=== PATIENT | male | born 1985 | race Caucasian/White ===

== ENCOUNTER 2016-06-03 16:30 | Emergency (ER) ==
[2016-06-03 16:36] VITALS: BP 148/90; TEMP 97.4; BMI 38.7
--- NOTE | 2016-06-03 17:13 | ED.PDOC ---
General ED Provider: Dr. ELSA RICKETTS Chief Complaint: Medication Refill Stated Complaint: med refill Time Seen by Physician: 16:31 Mode of Arrival: Walk-In Information Source: Patient Exam Limitations: No limitations Primary Care Provider: TRAV MOLINA Nursing and Triage Documentation Reviewed and Agree: Yes Miscellaneous Complaint Exam - Complex/Multi-System Complaint/Exam Onset/Duration: med refill pain meds Review of Systems - Review Of Systems Constitutional: Reports: No symptoms Eyes: Reports: No symptoms Ears, Nose, Mouth, Throat: Reports: No symptoms Respiratory: Reports: No symptoms Cardiac: Reports: No symptoms GI: Reports: No symptoms : Reports: No symptoms Musculoskeletal: Reports: No symptoms Skin: Reports: No symptoms Neurological: Reports: No symptoms Endocrine: Reports: No symptoms Hematologic/Lymphatic: Reports: No symptoms All Other Systems: Reviewed and Negative Past Medical History - Past Medical History Endocrine: Reports: None Cardiovascular: Reports: None Respiratory: Reports: None Hematological: Reports: None Gastrointestinal: Reports: None Genitourinary: Reports: None Neuro/Psych: Reports: Anxiety, Depression, Other (neuralgia) Musculoskeletal: Reports: Other (Antonette bites ) Cancer: Reports: None Other Pertinent Past Medical History: frostbite - Surgical History General Surgical History: Reports: Adenoidectomy, Orthopedic (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) - Family History Family History: Reports: Unknown - Social History Smoking Status: Current every day smoker, Light tobacco smoker Hx Substance Use: No Alcohol Screening: None - Immunizations Tetanus Shot up to Date: No Physical Exam - Physical Exam Appearance: Well-appearing, No pain distress, Well-nourished Eyes: JAGUAR, EOMI, Conjunctiva clear ENT: Ears normal, Nose normal, Oropharynx normal Respiratory: Airway patent, Breath sounds clear, Breath sounds equal, Respirations nonlabored Cardiovascular: RRR, Pulses normal, No rub, No murmur GI/: Soft, Nontender, No masses, Bowel sounds normal, No Organomegaly Musculoskeletal: Normal strength, ROM intact, No edema, No calf tenderness Skin: Warm, Dry, Normal color Neurological: Sensation intact, Motor intact, Reflexes intact, Cranial nerves intact, Alert, Oriented Psychiatric: Affect appropriate, Mood appropriate Critical Care Note - Critical Care Note Total Time (mins): 0 Course - Course Vital Signs: Temp Pulse Resp BP Pulse Ox 06/03/16 16:31 97.4 F L 112 H 20 148/90 H 96 Departure - Departure Time of Disposition: 17:13 Disposition: HOME SELF-CARE Discharge Problem: Encounter for medication refill Instructions: Medicine Refill (ED) Condition: Good Pt referred to PMD for follow-up: No Additional Instructions: Please call your Family Physician as soon as possible to schedule a follow-up appointment. Allergies/Adverse Reactions: Allergies No Known Allergies Allergy (Verified 06/03/16 16:37) Home Medications: Ambulatory Orders Oxycodone-Acetaminophen 10-325 [Percocet 10-325] 1 tab PO Q8H 04/12/15 Pregabalin [Lyrica] 300 mg PO BID 10/27/15
== END 2016-06-03 17:18 | disposition home or self-care (01) ==
LOC: ED 16:30
DX: Z76.0 Encounter for issue of repeat prescription (principal); F17.210 Nicotine dependence, cigarettes, uncomplicated
CPT/HCPCS: 99282

== ENCOUNTER 2016-06-15 12:47 | Emergency (ER) | payer OTHER ==
[2016-06-15 12:56] VITALS: BP 157/75; TEMP 96.7; BMI 37.6
--- NOTE | 2016-06-15 13:13 | ED.PDOC ---
General ED Provider: Dr. ELSA RICKETTS Chief Complaint: Hand Pain/Injury Stated Complaint: hand pain chronic out of pain meds Time Seen by Physician: 13:00 Mode of Arrival: Walk-In Information Source: Patient Exam Limitations: No limitations Primary Care Provider: TRAV MOLINA Nursing and Triage Documentation Reviewed and Agree: Yes Musculoskeletal Complaint Exam - Hand/Wrist Complaint/Exam Location of Pain: Reports: Hand Onset/Duration: chronic Symptoms Are: Still present Current Severity: None Alleviating: Reports: None Aggravating: Reports: None Review of Systems - Review Of Systems Constitutional: Reports: No symptoms Eyes: Reports: No symptoms Ears, Nose, Mouth, Throat: Reports: No symptoms Respiratory: Reports: No symptoms Cardiac: Reports: No symptoms GI: Reports: No symptoms : Reports: No symptoms Musculoskeletal: Reports: Other (hand pain) Skin: Reports: No symptoms Neurological: Reports: No symptoms Endocrine: Reports: No symptoms Hematologic/Lymphatic: Reports: No symptoms All Other Systems: Reviewed and Negative Past Medical History - Past Medical History Endocrine: Reports: None Cardiovascular: Reports: None Respiratory: Reports: None Hematological: Reports: None Gastrointestinal: Reports: None Genitourinary: Reports: None Neuro/Psych: Reports: Anxiety, Depression, Other (neuralgia) Musculoskeletal: Reports: Other (Antonette bites ) Cancer: Reports: None Other Pertinent Past Medical History: frostbite - Surgical History General Surgical History: Reports: Adenoidectomy, Orthopedic (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) - Family History Family History: Reports: Unknown - Social History Smoking Status: Current every day smoker, Light tobacco smoker Hx Substance Use: No Alcohol Screening: None Physical Exam - Physical Exam Appearance: Well-appearing, No pain distress, Well-nourished Eyes: JAGUAR, EOMI, Conjunctiva clear ENT: Ears normal, Nose normal, Oropharynx normal Respiratory: Airway patent, Breath sounds clear, Breath sounds equal, Respirations nonlabored Cardiovascular: RRR, Pulses normal, No rub, No murmur GI/: Soft, Nontender, No masses, Bowel sounds normal, No Organomegaly Musculoskeletal: Normal strength, ROM intact, No edema, No calf tenderness Skin: Warm, Dry, Normal color Neurological: Sensation intact, Motor intact, Reflexes intact, Cranial nerves intact, Alert, Oriented Psychiatric: Affect appropriate, Mood appropriate Critical Care Note - Critical Care Note Total Time (mins): 0 Course - Course Vital Signs: Temp Pulse Resp BP Pulse Ox 06/15/16 12:48 96.7 F L 81 20 157/75 H 97 Departure - Departure Time of Disposition: 13:12 Disposition: HOME SELF-CARE Discharge Problem: Encounter for medication refill Instructions: Medicine Refill (ED) Condition: Good Pt referred to PMD for follow-up: No Allergies/Adverse Reactions: Allergies No Known Allergies Allergy (Verified 06/15/16 12:57) Home Medications: Ambulatory Orders Oxycodone-Acetaminophen 10-325 [Percocet 10-325] 1 tab PO Q8H 04/12/15 Pregabalin [Lyrica] 300 mg PO BID 10/27/15 Disposition Discussed With: Patient
== END 2016-06-15 13:19 | disposition home or self-care (01) ==
LOC: ED 12:47
DX: M79.643 Pain in unspecified hand (principal); G89.29 Other chronic pain; Z76.0 Encounter for issue of repeat prescription; F17.210 Nicotine dependence, cigarettes, uncomplicated; Z89.022 Acquired absence of left finger(s); Z89.021 Acquired absence of right finger(s); Z79.899 Other long term (current) drug therapy
CPT/HCPCS: 99282

== ENCOUNTER 2016-11-13 10:51 | Emergency (ER) | payer OTHER ==
[2016-11-13 10:54] VITALS: BP 144/87; TEMP 98; BMI 36.9
--- NOTE | 2016-11-13 11:08 | ED.PDOC ---
General ED Provider: Dr. ELSA RICKETTS Chief Complaint: Hand Pain/Injury Stated Complaint: hand pain chronic Time Seen by Physician: 11:05 Mode of Arrival: Walk-In Information Source: Patient Exam Limitations: No limitations Primary Care Provider: TRAV MOLINA Nursing and Triage Documentation Reviewed and Agree: Yes Musculoskeletal Complaint Exam - Hand/Wrist Complaint/Exam Location of Pain: Reports: Right, Left, Hand Symptoms Are: Still present Initial Severity: Moderate Current Severity: Moderate Character: Reports: Dull, Aching Aggravating: Reports: None Associated Signs and Symptoms: Reports: Swelling Dominant Hand: Right Related Surgical History: Reports: None Compartment Syndrome Risk Factors: Present: Pain Review of Systems - Review Of Systems Constitutional: Reports: No symptoms Eyes: Reports: No symptoms Ears, Nose, Mouth, Throat: Reports: No symptoms Respiratory: Reports: No symptoms Cardiac: Reports: No symptoms GI: Reports: No symptoms : Reports: No symptoms Musculoskeletal: Reports: No symptoms Skin: Reports: No symptoms Neurological: Reports: No symptoms Endocrine: Reports: No symptoms Hematologic/Lymphatic: Reports: No symptoms All Other Systems: Reviewed and Negative Past Medical History - Past Medical History Endocrine: Reports: None Cardiovascular: Reports: None Respiratory: Reports: None Hematological: Reports: None Gastrointestinal: Reports: None Genitourinary: Reports: None Neuro/Psych: Reports: Anxiety, Depression, Other (neuralgia) Musculoskeletal: Reports: Other (Antonette bites ) Cancer: Reports: None Other Pertinent Past Medical History: frostbite - Surgical History General Surgical History: Reports: Adenoidectomy, Orthopedic (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) - Family History Family History: Reports: Unknown - Social History Smoking Status: Current every day smoker, Light tobacco smoker Hx Substance Use: No Alcohol Screening: None Physical Exam - Physical Exam Appearance: Well-appearing, No pain distress, Well-nourished Eyes: JAGUAR, EOMI, Conjunctiva clear ENT: Ears normal, Nose normal, Oropharynx normal Respiratory: Airway patent, Breath sounds clear, Breath sounds equal, Respirations nonlabored Cardiovascular: RRR, Pulses normal, No rub, No murmur GI/: Soft, Nontender, No masses, Bowel sounds normal, No Organomegaly Musculoskeletal: Normal strength, ROM intact, No edema, No calf tenderness Skin: Warm, Dry, Normal color Neurological: Sensation intact, Motor intact, Reflexes intact, Cranial nerves intact, Alert, Oriented Psychiatric: Affect appropriate, Mood appropriate Critical Care Note - Critical Care Note Total Time (mins): 0 Course - Course Vital Signs: Temp Pulse Resp BP Pulse Ox 11/13/16 10:52 98.0 F 85 16 144/87 H 98 Departure - Departure Time of Disposition: 11:10 Disposition: HOME SELF-CARE Discharge Problem: Hand pain Instructions: Arthralgia (ED) Condition: Good Pt referred to PMD for follow-up: No Additional Instructions: Please call your Family Physician as soon as possible to schedule a follow-up appointment. Allergies/Adverse Reactions: Allergies No Known Allergies Allergy (Verified 11/13/16 10:56) Home Medications: Ambulatory Orders Oxycodone-Acetaminophen 10-325 [Percocet 10-325] 1 tab PO Q8H 04/12/15 Pregabalin [Lyrica] 300 mg PO BID 10/27/15
== END 2016-11-13 11:16 | disposition home or self-care (01) ==
LOC: ED 10:51
DX: M79.642 Pain in left hand (principal); M79.641 Pain in right hand; G89.29 Other chronic pain; F17.210 Nicotine dependence, cigarettes, uncomplicated
CPT/HCPCS: 99282

== ENCOUNTER 2017-02-10 23:06 | Emergency (ER) ==
[2017-02-10 23:19] VITALS: BP 126/80; TEMP 97.4; BMI 33.5
[2017-02-10] MEDS ORDERED: MOTRIN PO STA (23:33)
[2017-02-10] MEDS ORDERED: AMOXIL PO STA (23:33)
--- NOTE | 2017-02-10 23:34 | ED.PDOC ---
General ED Provider: Dr. PETE STRE[address] Chief Complaint: Tooth Problem Stated Complaint: Pateint is a 31 year old male who comes to the Er with Left upper molar dental pain and crack for two days. Time Seen by Physician: 23:33 Mode of Arrival: Walk-In Information Source: Patient Exam Limitations: No limitations Primary Care Provider: TRAV MOLINA Nursing and Triage Documentation Reviewed and Agree: Yes EENT Complaint Exam - Dental/Oral Complaint/Exam Mechanism of Injury: No known trauma Onset/Duration: 3 days Symptoms Are: Still present Timing: Constant Initial Severity: Moderate Current Severity: Severe Location: Left upper molar Character: Reports: Aching, Throbbing Aggravating: Reports: Heat, Cold, Chewing Alleviating: Reports: None Associated Signs and Symptoms: Reports: Swelling, Foul odor, Foul taste in mouth Related History: Denies: Similar episode Cardiac Risk Factors: Reports: None Dental/Oral Surgical History: Reports: None Tooth Findings: Present: Gross decay, Gross caries, Abcess Cervical Lymphadenopathy Present: No Facial Swelling Present: Yes (left upper jaw area ) Bleeding Present: No Oropharynx Findings: Absent: Clots, Active bleeding Septal Hematoma: No Foreign Body Present: No Dysphagia Present: No Drooling Present: No Asymmetrical Tonsillar Swelling Present: No Uvula Midline: No Teresa-tonsillar Fluctuence: No Trismus Present: No Palatal Petechiae Present: No Scarlatinaform Rash Present: No Lesions: Absent: Lip Exanthem: Absent: Lip Vesicles: Absent: Lip Teeth Picture: 1 - decay and fracture Differential Diagnoses: Dental Abcess, Dental Caries, Fractured Tooth Review of Systems - Review Of Systems Constitutional: Reports: No symptoms Eyes: Reports: No symptoms Ears, Nose, Mouth, Throat: Reports: Mouth pain Respiratory: Reports: No symptoms Cardiac: Reports: No symptoms GI: Reports: No symptoms : Reports: No symptoms Musculoskeletal: Reports: No symptoms Skin: Reports: No symptoms Neurological: Reports: Anxiety Endocrine: Reports: No symptoms Hematologic/Lymphatic: Reports: No symptoms All Other Systems: Reviewed and Negative Past Medical History - Past Medical History Endocrine: Reports: None Cardiovascular: Reports: None Respiratory: Reports: None Hematological: Reports: None Gastrointestinal: Reports: None Genitourinary: Reports: None Neuro/Psych: Reports: Anxiety, Depression, Other (neuralgia) Musculoskeletal: Reports: Other (Antonette bites ) Cancer: Reports: None Other Pertinent Past Medical History: frostbite - Surgical History General Surgical History: Reports: Adenoidectomy, Orthopedic (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) - Family History Family History: Reports: Unknown - Social History Smoking Status: Current every day smoker, Light tobacco smoker Hx Substance Use: No Alcohol Screening: None - Immunizations Tetanus Shot up to Date: Yes Physical Exam - Physical Exam Appearance: Ill-appearing Ill-appearing: Mild Pain Distress: Severe Eyes: JAGUAR, EOMI, Conjunctiva clear Neck: Supple Respiratory: Airway patent, Breath sounds clear, Breath sounds equal, Respirations nonlabored Cardiovascular: RRR, Pulses normal, No rub, No murmur Skin: Warm, Dry, Normal color Neurological: Sensation intact, Motor intact, Alert, Oriented Psychiatric: Anxious Critical Care Note - Critical Care Note Total Time (mins): 0 Course - Course Vital Signs: Temp Pulse Resp BP Pulse Ox 02/10/17 23:07 97.4 F L 95 H 20 126/80 97 Departure - Departure Time of Disposition: 23:55 Disposition: HOME SELF-CARE Discharge Problem: Toothache, Dental abscess Instructions: Dental Abscess (ED), Toothache (ED) Condition: Fair Pt referred to PMD for follow-up: Yes Additional Instructions: Follow up with your PCP in 3 days for anxiety medications and your dentist in 7- 10 days Take medications as prescribed for abscess. Prescriptions: Amoxicillin [Amoxil] 500 mg PO TID #30 capsule Ibuprofen [Motrin] 600 mg PO Q6H PRN #30 tablet PRN Reason: Analgesia Allergies/Adverse Reactions: Allergies No Known Allergies Allergy (Verified 02/10/17 23:13) Home Medications: Ambulatory Orders Oxycodone-Acetaminophen 10-325 [Percocet 10-325] 10 - 325 mg PO Q8H PRN Pregabalin [Lyrica] 300 mg PO BID 10/27/15 Amoxicillin [Amoxil] 500 mg PO TID #30 capsule 02/10/17 Ibuprofen [Motrin] 600 mg PO Q6H PRN #30 tablet 02/10/17 Disposition Discussed With: Patient
== END 2017-02-10 23:43 | disposition home or self-care (01) ==
LOC: ED 23:06
DX: K04.7 Periapical abscess without sinus (principal); K02.7 Dental root caries; F17.210 Nicotine dependence, cigarettes, uncomplicated
CPT/HCPCS: 99282

== ENCOUNTER 2017-02-21 13:18 | Emergency (ER) ==
[2017-02-21 13:21] VITALS: BP 125/87; TEMP 99; BMI 33.5
--- NOTE | 2017-02-21 13:37 | ED.PDOC ---
General ED Provider: Dr. KIERRA PLASENCIA Chief Complaint: Tooth Problem Stated Complaint: came for the broken molar teeth, left upper, was given antibiotics and pain meds, says he some better, wants some more. Time Seen by Physician: 13:34 Mode of Arrival: Walk-In Information Source: Patient Nursing and Triage Documentation Reviewed and Agree: Yes EENT Complaint Exam - Dental/Oral Complaint/Exam Mechanism of Injury: Unknown Symptoms Are: Still present Timing: Constant Initial Severity: Mild Current Severity: Mild Character: Reports: Dull, Aching Aggravating: Reports: Chewing Alleviating: Reports: None Associated Signs and Symptoms: Reports: Foul odor, Foul taste in mouth. Denies : Swelling, Discharge, Fever Related History: Reports: Similar episode Cardiac Risk Factors: Reports: None Dental/Oral Surgical History: Reports: None Tooth Findings: Present: Percussion tenderness, Dental fracture Facial Swelling Present: No Bleeding Present: No Septal Hematoma: No Foreign Body Present: No Dysphagia Present: No Drooling Present: No Asymmetrical Tonsillar Swelling Present: No Uvula Midline: No Teresa-tonsillar Fluctuence: No Trismus Present: No Palatal Petechiae Present: No Scarlatinaform Rash Present: No Differential Diagnoses: Dental Caries, Fractured Tooth Review of Systems - Review Of Systems Constitutional: Reports: No symptoms Eyes: Reports: No symptoms Ears, Nose, Mouth, Throat: Reports: Mouth pain Respiratory: Reports: No symptoms Cardiac: Reports: No symptoms GI: Reports: No symptoms : Reports: No symptoms Musculoskeletal: Reports: No symptoms Skin: Reports: No symptoms Neurological: Reports: No symptoms Endocrine: Reports: No symptoms Hematologic/Lymphatic: Reports: No symptoms All Other Systems: Reviewed and Negative Past Medical History - Past Medical History Previously Healthy: Yes Endocrine: Reports: None Cardiovascular: Reports: None Respiratory: Reports: None Hematological: Reports: None Gastrointestinal: Reports: None Genitourinary: Reports: None Neuro/Psych: Reports: Anxiety, Depression, Other (neuralgia) Musculoskeletal: Reports: Other (Antonette bites ) Cancer: Reports: None Other Pertinent Past Medical History: frostbite - Surgical History General Surgical History: Reports: Adenoidectomy, Orthopedic (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) - Family History Family History: Reports: Unknown - Social History Smoking Status: Current every day smoker, Light tobacco smoker Smoking Cessation Counseling Time: > 3 min - 10 min Hx Substance Use: No Alcohol Screening: None Physical Exam - Physical Exam Appearance: Well-appearing, No pain distress, Well-nourished Eyes: JAGUAR, EOMI, Conjunctiva clear ENT: Ears normal, Nose normal, Oropharynx normal Respiratory: Airway patent, Breath sounds clear, Breath sounds equal, Respirations nonlabored Cardiovascular: RRR, Pulses normal, No rub, No murmur GI/: Soft, Nontender, No masses, Bowel sounds normal, No Organomegaly Musculoskeletal: Normal strength, ROM intact, No edema, No calf tenderness Skin: Warm, Dry, Normal color Neurological: Sensation intact, Motor intact, Reflexes intact, Cranial nerves intact, Alert, Oriented Psychiatric: Affect appropriate, Mood appropriate Critical Care Note - Critical Care Note Total Time (mins): 0 Course - Course Vital Signs: Temp Pulse Resp BP Pulse Ox 02/21/17 13:19 99.0 F 76 20 125/87 97 Departure - Departure Time of Disposition: 13:39 Disposition: HOME SELF-CARE Discharge Problem: Toothache Instructions: Toothache (ED) Condition: Good Pt referred to PMD for follow-up: Yes Additional Instructions: patient left ER says there is an emergency and justice needs to be served. Allergies/Adverse Reactions: Allergies No Known Allergies Allergy (Verified 02/21/17 13:21) Home Medications: Ambulatory Orders Oxycodone-Acetaminophen 10-325 [Percocet 10-325] 10 - 325 mg PO Q8H PRN Pregabalin [Lyrica] 300 mg PO BID 10/27/15 Ibuprofen [Motrin] 600 mg PO Q6H PRN #30 tablet 02/10/17 Disposition Discussed With: Patient
[2017-02-21] MEDS ORDERED: TORADOL IM STA (13:40)
== END 2017-02-21 13:52 | disposition home or self-care (01) ==
LOC: ED 13:18
DX: K08.89 Other specified disorders of teeth and supporting structures (principal); S02.5XXA Fracture of tooth (traumatic), initial encounter for closed fracture; F17.210 Nicotine dependence, cigarettes, uncomplicated
CPT/HCPCS: 99282

== ENCOUNTER 2017-05-24 11:45 | Emergency (ER) ==
[2017-05-24 11:49] VITALS: BP 153/100; TEMP 97.6; BMI 36.2
--- NOTE | 2017-05-24 12:07 | ED.PDOC ---
General ED Provider: Dr. ELSA RICKETTS Chief Complaint: Hand Pain/Injury Stated Complaint: chronic hand pain Time Seen by Physician: 12:00 Mode of Arrival: Walk-In Information Source: Patient Exam Limitations: No limitations Nursing and Triage Documentation Reviewed and Agree: Yes Reviewed sepsis parameters & appropriate labs ordered?: Yes System Inflammatory Response Syndrome: Not Applicable Sepsis Protocol: For patient's 13 years and over: Temp is 96.8 and below OR 101 and greater Pulse >90 BPM Resp >20/minute Acutely Altered Mental Status Are patient's symptoms suggestive of a new infection, such as: -Pneumonia -Skin, Soft Tissue -Endocarditis -UTI -Bone, Joint Infection -Implantable Device -Acute Abdominal Infection -Wound Infection -Meningitis -Blood Stream Catheter Infection -Unknown Musculoskeletal Complaint Exam - Hand/Wrist Complaint/Exam Location of Pain: Reports: Right, Left, Hand Mechanism of Injury: Reports: No known trauma Onset/Duration: chronic pain issue worse in [place] Symptoms Are: Still present Onset of Pain: Reports: Hours Initial Severity: Mild Current Severity: Mild Location: Reports: Discrete Character: Reports: Aching Alleviating: Reports: Rest Aggravating: Reports: Movement Associated Signs and Symptoms: Denies: Swelling, Redness, Bruising, Fever, Weakness, Numbness, Tingling Related History: Reports: Similar episode Dominant Hand: Right Related Surgical History: Reports: None Differential Diagnoses: Sprain, Strain Review of Systems - Review Of Systems Constitutional: Reports: No symptoms Eyes: Reports: No symptoms Ears, Nose, Mouth, Throat: Reports: No symptoms Respiratory: Reports: No symptoms Cardiac: Reports: No symptoms GI: Reports: No symptoms : Reports: No symptoms Musculoskeletal: Reports: Other (hand pain) Skin: Reports: No symptoms Neurological: Reports: No symptoms Endocrine: Reports: No symptoms Hematologic/Lymphatic: Reports: No symptoms All Other Systems: Reviewed and Negative Past Medical History - Past Medical History Previously Healthy: Yes Endocrine: Reports: None Cardiovascular: Reports: None Respiratory: Reports: None Hematological: Reports: None Gastrointestinal: Reports: None Genitourinary: Reports: None Neuro/Psych: Reports: Anxiety, Depression, Other (neuralgia) Musculoskeletal: Reports: Other (Antonette bites ) Cancer: Reports: None Other Pertinent Past Medical History: frostbite - Surgical History General Surgical History: Reports: Adenoidectomy, Orthopedic (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) - Family History Family History: Reports: Unknown - Social History Smoking Status: Current every day smoker, Light tobacco smoker Hx Substance Use: No Alcohol Screening: None Physical Exam - Physical Exam Appearance: Well-appearing, No pain distress, Well-nourished Eyes: JAGUAR, EOMI, Conjunctiva clear ENT: Ears normal, Nose normal, Oropharynx normal Respiratory: Airway patent, Breath sounds clear, Breath sounds equal, Respirations nonlabored Cardiovascular: RRR, Pulses normal, No rub, No murmur GI/: Soft, Nontender, No masses, Bowel sounds normal, No Organomegaly Musculoskeletal: Normal strength, ROM intact, No edema, No calf tenderness Skin: Warm, Dry, Normal color Neurological: Sensation intact, Motor intact, Reflexes intact, Cranial nerves intact, Alert, Oriented Psychiatric: Affect appropriate, Mood appropriate Critical Care Note - Critical Care Note Total Time (mins): 0 Course - Course Vital Signs: Temp Pulse Resp BP Pulse Ox 05/24/17 11:45 97.6 F 108 H 16 153/100 H 98 Departure - Departure Time of Disposition: 12:06 Disposition: HOME SELF-CARE Discharge Problem: Hand pain, Injury of hand Instructions: Arthralgia (ED) Condition: Good Pt referred to PMD for follow-up: Yes Additional Instructions: Please call your Family Physician as soon as possible to schedule a follow-up appointment. Prescriptions: Hydrocodone/Acetaminophen [[place] 10-325 Tablet] 1 each PO Q8HR #20 tablet Allergies/Adverse Reactions: Allergies No Known Allergies Allergy (Verified 05/24/17 11:51) Home Medications: Ambulatory Orders Ibuprofen [Motrin] 600 mg PO Q6H PRN #30 tablet 02/10/17 Hydrocodone/Acetaminophen [Aurora 10-325 Tablet] 1 each PO Q8HR #20 tablet
== END 2017-05-24 12:08 | disposition home or self-care (01) ==
LOC: ED 11:45
DX: M79.642 Pain in left hand (principal); M79.641 Pain in right hand; G89.29 Other chronic pain; Z89.022 Acquired absence of left finger(s); Z89.021 Acquired absence of right finger(s); X31.XXXS Exposure to excessive natural cold, sequela
CPT/HCPCS: 99283

== ENCOUNTER 2017-06-08 11:50 | Emergency (ER) ==
[2017-06-08 11:51] VITALS: BMI 36.2
[2017-06-08 11:57] VITALS: BP 135/90; TEMP 97.3
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
== END 2017-06-08 12:51 | disposition home or self-care (01) ==
LOC: ED 11:50
DX: M79.642 Pain in left hand (principal); M79.641 Pain in right hand; G89.29 Other chronic pain; T33.5 Superficial frostbite of wrist, hand, and fingers; T33.531S Superficial frostbite of right finger(s), sequela; Z89.022 Acquired absence of left finger(s); Z89.021 Acquired absence of right finger(s)
CPT/HCPCS: 99282

== ENCOUNTER 2017-06-16 14:06 | Emergency (ER) | payer OTHER ==
[2017-06-16 14:07] VITALS: BMI 36.2
[2017-06-16 14:11] VITALS: BP 141/91; TEMP 98.3
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
== END 2017-06-16 14:34 | disposition home or self-care (01) ==
LOC: ED 14:06
DX: M79.642 Pain in left hand (principal); M79.641 Pain in right hand; G89.29 Other chronic pain; Z89.022 Acquired absence of left finger(s); Z89.021 Acquired absence of right finger(s)
CPT/HCPCS: 99282

== ENCOUNTER 2018-09-09 15:29 | Emergency (ER) ==
[2018-09-09 15:36] VITALS: BP 119/87; TEMP 98.6; BMI 42.0
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
== END 2018-09-09 16:40 | disposition home or self-care (01) ==
LOC: ED 15:29
DX: G54.6 Phantom limb syndrome with pain (principal); M79.642 Pain in left hand; M79.641 Pain in right hand; F17.210 Nicotine dependence, cigarettes, uncomplicated
CPT/HCPCS: 99282; 99283

== ENCOUNTER 2018-09-24 07:22 | Emergency (ER) ==
[2018-09-24 07:27] VITALS: BP 127/86; TEMP 97.6; BMI 40.8
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
== END 2018-09-24 07:58 | disposition home or self-care (01) ==
LOC: ED 07:22
DX: G62.9 Polyneuropathy, unspecified (principal); Z76.0 Encounter for issue of repeat prescription; F17.210 Nicotine dependence, cigarettes, uncomplicated
CPT/HCPCS: 99282

== ENCOUNTER 2018-11-12 06:13 | Emergency (ER) ==
[2018-11-12 06:16] VITALS: BP 134/76; TEMP 98; BMI 39.9
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
== END 2018-11-12 06:55 | disposition home or self-care (01) ==
LOC: ED 06:13
DX: M79.642 Pain in left hand (principal); M79.641 Pain in right hand; G89.21 Chronic pain due to trauma; Z76.0 Encounter for issue of repeat prescription; X31.XXXS Exposure to excessive natural cold, sequela; Z89.022 Acquired absence of left finger(s); Z89.021 Acquired absence of right finger(s); F17.210 Nicotine dependence, cigarettes, uncomplicated
CPT/HCPCS: 99282

== ENCOUNTER 2019-01-21 19:33 | Emergency (ER) ==
[2019-01-21 19:42] VITALS: BP 126/86; TEMP 97.6; BMI 41.3
--- NOTE | 2019-01-21 19:49 | ED.PDOC ---
General ED Provider: Dr. DIMPLE RIVERA-ER Chief Complaint: Medication Refill Stated Complaint: i have depression aNd aNxiety and arturo been out of my zoloft-- i hve been taking my sisters Time Seen by Physician: 19:48 Mode of Arrival: Walk-In Information Source: Patient, Assisted Living Nursing and Triage Documentation Reviewed and Agree: Yes Does patient meet sepsis criteria?: No System Inflammatory Response Syndrome: Not Applicable Sepsis Protocol: For patient's 13 years and over: Temp is 96.8 and below OR 101 and greater Pulse >90 BPM Resp >20/minute Acutely Altered Mental Status Are patient's symptoms suggestive of a new infection, such as: -Pneumonia -Skin, Soft Tissue -Endocarditis -UTI -Bone, Joint Infection -Implantable Device -Acute Abdominal Infection -Wound Infection -Meningitis -Blood Stream Catheter Infection -Unknown Psychological Complaint Exam - Psychiatric Complaint/Exam Patient Complains Of: Present: Depression Symptoms Are: Still present Timing: Constant Initial Severity: Mild Current Severity: Mild Character: Present: Depressed, Anxious Aggravating: Reports: Medication noncompliance Associated Signs And Symptoms: Denies: Hostile, Confused, Hallucinating, Paranoid behavior, Sleep disturbance, Appetite change Completed Suicide Risk Factors: None Patient In Custody Of Police: No Social Withdrawal Present: No Social Isolation Present: No Prior Suicide Attempt: No Injury From Prior Suicide Attempt: No Patient Uncooperative For Exam: No Mood: Present: Depressed Appearance: Present: Unkempt Thought Process: Present: Illogical Insight: Present: Good Memory: Intact Judgement: Normal Danger To Others: No Differential Diagnoses: Anxiety, Depression Review of Systems - Review Of Systems Constitutional: Reports: No symptoms Eyes: Reports: No symptoms Ears, Nose, Mouth, Throat: Reports: No symptoms Respiratory: Reports: No symptoms Cardiac: Reports: No symptoms GI: Reports: No symptoms : Reports: No symptoms Musculoskeletal: Reports: No symptoms Skin: Reports: No symptoms Neurological: Reports: Anxiety, Depressed Endocrine: Reports: No symptoms Hematologic/Lymphatic: Reports: No symptoms All Other Systems: Reviewed and Negative Past Medical History - Past Medical History Previously Healthy: Yes Endocrine: Reports: None Cardiovascular: Reports: None Respiratory: Reports: None Hematological: Reports: None Gastrointestinal: Reports: None Genitourinary: Reports: None Neuro/Psych: Reports: Anxiety, Depression, Other (neuralgia) Musculoskeletal: Reports: Other (Antonette bites ) Cancer: Reports: None Other Pertinent Past Medical History: frostbite - Surgical History General Surgical History: Reports: Adenoidectomy, Orthopedic (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) - Family History Family History: Reports: Unknown - Social History Smoking Status: Current every day smoker Hx Substance Use: No Alcohol Screening: None - Immunizations Tetanus Shot up to Date: Yes Physical Exam - Physical Exam Appearance: Well-appearing, No pain distress, Well-nourished Eyes: JAGUAR, EOMI, Conjunctiva clear ENT: Ears normal, Nose normal, Oropharynx normal Neck: Supple Respiratory: Airway patent, Breath sounds clear, Breath sounds equal, Respirations nonlabored Cardiovascular: RRR, Pulses normal, No rub, No murmur GI/: Soft, Nontender, No masses, Bowel sounds normal, No Organomegaly Musculoskeletal: Normal strength, ROM intact, No edema, No calf tenderness Skin: Warm Neurological: Alert, Oriented Psychiatric: Affect appropriate, Mood appropriate Critical Care Note - Critical Care Note Total Time (mins): 0 Course - Course Vital Signs: Temp Pulse Resp BP Pulse Ox 01/21/19 19:34 97.6 F 86 20 126/86 97 Departure - Departure Time of Disposition: 19:49 Disposition: HOME SELF-CARE Discharge Problem: Depression Instructions: Depression (ED) Condition: Good Pt referred to PMD for follow-up: Yes IPMP verified?: No Additional Instructions: f/u with pcp Allergies/Adverse Reactions: Allergies No Known Allergies Allergy (Verified 01/21/19 19:43) Home Medications: Ambulatory Orders Pregabalin [Lyrica] 75 mg PO BID #60 capsule 01/08/19 Sertraline HCl [Zoloft] 50 mg PO DAILY 01/21/19 Disposition Discussed With: Patient Discharge Problem: Depression Qualifiers: Depression Type: major depressive disorder Major depression recurrence: recurrent Active/Remission status: currently active Major depression episode severity: mild Qualified Code(s): F33.0 - Major depressive disorder, recurrent, mild
== END 2019-01-21 19:53 | disposition home or self-care (01) ==
LOC: ED 19:33
DX: F33.0 Major depressive disorder, recurrent, mild (principal); F41.9 Anxiety disorder, unspecified; Z76.0 Encounter for issue of repeat prescription; F17.210 Nicotine dependence, cigarettes, uncomplicated
CPT/HCPCS: 99282